=== PATIENT | female | born 1965 | race Caucasian/White ===

== ENCOUNTER → 2016-10-24 | Outpatient (CLI) | payer OTHER ==
[~2016-10-24] VITALS: Ht 172.7 cm; Wt 87.1 kg
[~2016-10-24] MED LIST: CALC500T49 PO; CLAR10CA3 PO; FLON1SPR; MULT1TAB10 PO; NS 1,000 ML IV SCH; OMEG100011 PO; OMEP20CA3 PO; PROPOFOL 200 MG/20 ML VIAL As Ordered ONE; SINUTAB PO; VITA100037 PO; VITA1TAB23 PO; astelin; fentaNYL 100 MCG/2 ML INJECTION (J3010) As Ordered ONE
--- NOTE | 2016-10-24 12:30 | ROOR ---
Patient Name: Cale Brice Procedure Date: 10/24/2016 11:53 AM Date of : 1965 Age: 51 Room: [facility] Gender: Female Note Status: Finalized Procedure: Upper GI endoscopy + Biopsies Indications: Heartburn, Exclusion of Sharp's esophagus Providers: Tio Cardoza MD Referring MD: MIRIAN CHARLES NP Requesting Provider: Medicines: Monitored Anesthesia Care Complications: No immediate complications. Procedure: Pre-Anesthesia Assessment: - The heart rate, respiratory rate, oxygen saturations, blood pressure, adequacy of pulmonary ventilation, and response to care were monitored throughout the procedure. The Endoscope was introduced through the mouth, and advanced to the second part of duodenum. The upper GI endoscopy was accomplished without difficulty. The patient tolerated the procedure well. Findings: The Z-line was irregular and was found 35 cm from the incisors. Multiple biopsies were obtained with cold forceps for evaluation to rule out Sharp's Esophagus randomly at the gastroesophageal junction. A medium-sized hiatal hernia was present. Mucosal changes including ringed esophagus were found in the entire esophagus. Biopsies were taken with a cold forceps for histology. No other significant abnormalities were identified in a careful examination of the stomach. The exam of the duodenum was otherwise normal. Impression: - Z-line irregular, 35 cm from the incisors. - Medium-sized hiatal hernia. - Esophageal mucosal changes suggestive of eosinophilic esophagitis. Biopsied. - Multiple biopsies were obtained at the gastroesophageal junction. - The examination was otherwise normal. Recommendation: - Patient has a contact number available for emergencies. The signs and symptoms of potential delayed complications were discussed with the patient. Return to normal activities tomorrow. Written discharge instructions were provided to the patient. - High fiber diet. - Discharge patient to home. - Continue present medications. - Await pathology results. - Check Portal Online for Path Results.([email or web address]) - Return to referring physician. - The findings and recommendations were discussed with the patient's family. Tio Cardoza MD Tio Cardoza MD 10/24/2016 12:30:01 PM This report has been signed electronically. Number of Addenda: 0 Note Initiated On: 10/24/2016 11:53 AM Estimated Blood Loss: Estimated blood loss: none. Estimated blood loss: none.
--- NOTE | 2016-10-24 12:32 | ROOR ---
Patient Name: Cale Brice Procedure Date: 10/24/2016 11:54 AM Date of : 1965 Age: 51 Room: [facility] Gender: Female Note Status: Finalized Procedure: Colonoscopy to Cecum Indications: Screening for colorectal malignant neoplasm, Last colonoscopy: 2005 Providers: Tio Cardoza MD Referring MD: MIRIAN CHARLES NP Requesting Provider: Medicines: Monitored Anesthesia Care Complications: No immediate complications. Procedure: Pre-Anesthesia Assessment: - The heart rate, respiratory rate, oxygen saturations, blood pressure, adequacy of pulmonary ventilation, and response to care were monitored throughout the procedure. The Colonoscope was introduced through the anus and advanced to the cecum, identified by appendiceal orifice and ileocecal valve. The colonoscopy was performed without difficulty. The patient tolerated the procedure well. The quality of the bowel preparation was excellent. Findings: The perianal and digital rectal examinations were normal. Non-bleeding internal hemorrhoids were found during retroflexion. The hemorrhoids were small and Grade I (internal hemorrhoids that do not prolapse). Scattered small-mouthed diverticula were found in the recto-sigmoid colon, sigmoid colon and descending colon. The exam was otherwise without abnormality on direct and retroflexion views. Impression: - Non-bleeding internal hemorrhoids. - Diverticulosis in the recto-sigmoid colon, in the sigmoid colon and in the descending colon. - The examination was otherwise normal on direct and retroflexion views. - No specimens collected. - The exam was otherwise normal to the cecum. Recommendation: - Patient has a contact number available for emergencies. The signs and symptoms of potential delayed complications were discussed with the patient. Return to normal activities tomorrow. Written discharge instructions were provided to the patient. - High fiber diet. - Discharge patient to home. - Repeat colonoscopy in 10 years for screening purposes. - Return to referring physician. - The findings and recommendations were discussed with the patient's family. Tio Cardoza MD Tio Cardoza MD 10/24/2016 12:32:12 PM This report has been signed electronically. Number of Addenda: 0 Note Initiated On: 10/24/2016 11:54 AM Estimated Blood Loss: Estimated blood loss: none.
[2016-10-24 12:45] VITALS: BP 142/91
== END | disposition home or self-care (01) ==
LOC: M SDC 10:28 → M OPP 10:28
PROVIDERS: ATTEND Internal Medicine Gastroenterology
DX: Z12.11 Encounter for screening for malignant neoplasm of colon (principal); K64.0 First degree hemorrhoids; K57.30 Diverticulosis of large intestine without perforation or abscess without bleeding; K21.9 Gastro-esophageal reflux disease without esophagitis; K22.8 Other specified diseases of esophagus; K44.9 Diaphragmatic hernia without obstruction or gangrene; K20.9 Esophagitis, unspecified; Z79.899 Other long term (current) drug therapy; Z87.891 Personal history of nicotine dependence
CPT/HCPCS: 43239; 45378; 88305; 99156; 99157; J3010

== ENCOUNTER → 2017-04-06 | Outpatient (REF) | payer OTHER ==
[~2017-04-06] MED LIST changes: -NS 1,000 ML IV SCH; -PROPOFOL 200 MG/20 ML VIAL As Ordered ONE; -VITA100037 PO; +VITA100067 PO; -fentaNYL 100 MCG/2 ML INJECTION (J3010) As Ordered ONE
== END ==
LOC: M LAB REF 10:34
PROVIDERS: ATTEND Physician Assistant
DX: R39.15 Urgency of urination (principal)

== ENCOUNTER → 2017-09-30 | Outpatient (REF) | payer OTHER ==
[2017-09-30 17:45] LABS: C REACTIVE PROTEIN QUANTITATIV 0.55 MG/DL (0.00-0.30)
[2017-10-03 00:07] LABS: EBV VIRAL CAPSID AG IgG >600.0 U/mL (0.0-17.9); EBV VIRAL CAPSID AG IgM <36.0 U/mL (0.0-35.9); Lyme Disease IgG/IgM Antibodie <0.91 ISR (0.00-0.90); Lyme Disease IgM Ab Quantitati <0.80 index (0.00-0.79)
== END ==
LOC: M LAB REF 16:44
DX: R59.0 Localized enlarged lymph nodes (principal)

== ENCOUNTER → 2017-10-22 | Outpatient (CLI) | payer OTHER | LOC: M WUC 16:54 | DX: J81.1 Chronic pulmonary edema (principal) | CPT/HCPCS: 71046 ==

== ENCOUNTER → 2017-12-09 | Outpatient (REF) | payer OTHER ==
[2017-12-09 19:30] LABS: C REACTIVE PROTEIN QUANTITATIV 0.52 MG/DL (0.00-0.30)
[2017-12-12 00:07] LABS: EBV VIRAL CAPSID AG IgM <36.0 U/mL (0.0-35.9)
[2017-12-12 00:07] LABS: EBV AB TO NUCLEAR ANTIGEN 26.6 U/mL (0.0-17.9); EBV VIRAL CAPSID AG IgG >600.0 U/mL (0.0-17.9)
== END ==
LOC: M LAB REF 18:07
DX: R59.0 Localized enlarged lymph nodes (principal)

== ENCOUNTER → 2018-05-21 | Outpatient (REF) | payer OTHER | LOC: M LAB REF 19:26 | DX: N39.0 Urinary tract infection, site not specified (principal) ==

== ENCOUNTER → 2018-06-03 | Outpatient (REF) | payer OTHER ==
[2018-06-05 08:06] LABS: LDL DIRECT 141 mg/dL (0-99)
== END ==
LOC: M LAB REF 16:41
DX: E78.5 Hyperlipidemia, unspecified (principal)
CPT/HCPCS: 83721

== ENCOUNTER → 2018-07-12 | Outpatient (REF) | payer OTHER | LOC: M LAB REF 12:00 | PROVIDERS: ATTEND Internal Medicine Gastroenterology | DX: R19.7 Diarrhea, unspecified (principal) ==

== ENCOUNTER → 2018-07-14 | Outpatient (REF) | payer OTHER ==
[2018-07-18 16:26] LABS: HPV HYBRID CAPTURE II Negative (Negative)
== END ==
LOC: M SFHCWAGY 16:23
PROVIDERS: ATTEND Nurse Practitioner Family
DX: Z12.4 Encounter for screening for malignant neoplasm of cervix (principal)
CPT/HCPCS: 87624; G0123

== ENCOUNTER → 2019-05-20 | Outpatient (CLI) | payer OTHER ==
[~2019-05-20] MED LIST changes: -OMEP20CA3 PO; +OMEP20CA4 PO
--- NOTE | 2019-05-20 16:28 | REP ---
Three views chest: 05/20/2019. Indication: Dyspnea. Comparison: 10/22/2018. Findings: No air space consolidation, pleural effusion or pneumothorax is detected. The cardiomediastinal silhouette is unremarkable. There is a 1.4 cm nodular density within the left costophrenic angle which is not appreciated on the additional images. Impression: No acute cardiopulmonary process. Possible left lower lobe pulmonary nodule. Dedicated chest CT is recommended for further evaluation. Electronically Signed by Jese Osuna DO 05/20/2019 04:20 P
== END ==
LOC: M WUC 10:41
PROVIDERS: ATTEND Physician Assistant
DX: R06.02 Shortness of breath (principal); R91.8 Other nonspecific abnormal finding of lung field

== ENCOUNTER → 2019-06-16 | Outpatient (CLI) | payer OTHER ==
[~2019-06-16] MED LIST changes: +OMEP-172 PO; -OMEP20CA4 PO
--- NOTE | 2019-06-16 17:35 | REP ---
CT chest without contrast: History: Left lower lobe pneumonia. Comparison chest CT study May 21, 2019. CT findings: The previously noted dense consolidation pattern in the left lower lobe is dramatically improved. There are some patchy interstitial and a tree in bud type opacities in the left lower lobe remaining and there are patchy ground-glass opacities again seen in the lingula. These are improved. The patchy opacities seen previously in the left upper lobe are resolved. There are ground-glass opacities in the right upper lobe, which were not apparent at the time of the CT study from May 21, 2019, but appear to be inflammatory or postinflammatory. They are somewhat linear in orientation. No hilar or mediastinal mass is seen. There are scattered mediastinal lymph nodes noted which are unchanged. No adrenal lesion is seen. There is an accessory splenule. Impression: Previously noted left lower and left upper lobe infiltrates are virtually resolved. There is some residual patchy ground-glass opacities bilaterally. Stable scattered small mediastinal nodes. Findings consistent with resolving pneumonia. Electronically Signed by Aquilino Frey MD 06/17/2019 05:33 P
== END ==
LOC: M RAD 16:02
PROVIDERS: ATTEND Nurse Practitioner Family
DX: J18.9 Pneumonia, unspecified organism (principal)

== ENCOUNTER → 2019-07-13 | Outpatient (REF) | payer OTHER | LOC: M LAB REF 16:17 | PROVIDERS: ATTEND Nurse Practitioner Family | DX: R30.0 Dysuria (principal) ==

== ENCOUNTER → 2019-09-17 | Outpatient (CLI) | payer OTHER ==
[~2019-09-17] MED LIST changes: -OMEP-172 PO; +OMEP1CAP73 PO
--- NOTE | 2019-09-21 18:10 | REP ---
Clinical: Postmenopausal bleeding. Technique: Transabdominal pelvic ultrasound followed by transvaginal examination for better evaluation of the endometrium and adnexa with color Doppler evaluation of the ovaries. Comparison: 03/29/2015 Findings: Heterogeneous retroverted uterus measures 6.2 x 3.3 x 4.5 cm with possible 1 cm posterior intramural fibroid suspected. Endometrial complex measures 8 mm thickness without discrete polyp or mass. Right ovary is normal in appearance and vascularity measuring 2.5 x 1.4 x 1.1 cm (RI 0.53). The left ovary measures 2.6 x 1.3 x 1.0 cm (RI 0.57) and a complex left paraovarian cyst with mural nodule and 4 mm calcification is identified measuring 1.6 x 1.4 x 1.2 cm. No pelvic free fluid or adnexal mass lesion otherwise noted. The bladder appears normal and measures 10.3 x 8.3 x 10.0 cm. Impression: 1. Mildly thickened endometrial complex to 8 mm without discrete abnormality. 2. 1 cm posterior intramural fibroid suspected. 3. Complex left paraovarian versus partially exophytic ovarian cyst. Consider reevaluation in 4-6 weeks to evaluate for resolution. Electronically Signed by Marshall Ricketts MD 09/21/2019 06:02 P
== END ==
LOC: M WHC 14:54
PROVIDERS: ATTEND Nurse Practitioner Family
DX: N95.0 Postmenopausal bleeding (principal)

== ENCOUNTER → 2019-11-09 | Outpatient (CLI) | payer OTHER ==
--- NOTE | 2019-11-10 06:40 | REP ---
Clinical: Left ovarian cyst . Comparison: 09/17/2019 Technique: Transabdominal pelvic ultrasound followed by transvaginal examination for better evaluation of the endometrium and adnexa with color Doppler evaluation of the ovaries. Findings: Bladder is unremarkable and measures 9.1 x 5.3 x 8.7 cm . Heterogeneous anteverted retroflexed uterus measures 6.7 x 2.6 x 4.6 cm and includes multiple hypoechoic lesions most compatible with small fibroids including largest anterior intramural fibroid measuring 1.1 cm diameter. The endometrial complex measures 6.1 mm thickness. Bilateral ovaries are normal in appearance and vascularity without evidence for torsion. Right ovary measures 1.0 x 2.2 x 1.3 cm (RI 0.68) ; Left ovary measures 2.4 x 1.0 x 1.2 cm (RI 0.63) including a 4.4 mm echogenic focus with shadowing suggesting small calcification. 1.4 x 1.6 x 1.3 cm complex left paraovarian cyst with small mural nodules unchanged. No pelvic fluid or adnexal mass lesion. Impression: 1. No significant change from prior examination including suspected small fibroids and left ovarian calcification as well as complex left paraovarian cyst.
== END ==
LOC: M WHC 10:26
PROVIDERS: ATTEND Nurse Practitioner Family
DX: N83.202 Unspecified ovarian cyst, left side (principal)

== ENCOUNTER → 2019-11-09 | Outpatient (REF) | payer OTHER | LOC: M SFHCWAGY 16:49 | PROVIDERS: ATTEND Nurse Practitioner Family | DX: N95.0 Postmenopausal bleeding (principal) ==

== ENCOUNTER → 2019-12-07 | Outpatient (REF) | payer OTHER ==
[2019-12-09 08:15] LABS: LDL DIRECT 119 mg/dL (0-99)
== END ==
LOC: M LAB REF 16:15
PROVIDERS: ATTEND Nurse Practitioner Family
DX: E78.5 Hyperlipidemia, unspecified (principal)

== ENCOUNTER → 2019-12-16 | Outpatient (CLI) | payer OTHER | LOC: M LABSMTC 11:26 | PROVIDERS: ATTEND Family Medicine | DX: Z03.818 Encounter for observation for suspected exposure to other biological agents ruled out (principal); Z11.59 Encounter for screening for other viral diseases | CPT/HCPCS: C9803; U0003 ==

== ENCOUNTER → 2020-01-26 | Outpatient (CLI) | payer OTHER ==
[~2020-01-26] MED LIST changes: -VITA1TAB23 PO; +VITA250T26 PO
--- NOTE | 2020-01-26 11:25 | REP ---
Clinical: Follow-up left ovarian cyst. Technique: Transabdominal pelvic ultrasound followed by transvaginal examination for better evaluation of the endometrium and adnexa color Doppler evaluation of the ovaries. Comparison: 11/09/2019. Findings: Bladder is normal and measures 11.1 x 5.9 x 8.9 cm. Heterogeneous retroverted uterus measures 5.8 x 3.5 x 4.1 cm and includes 10 mm and 7 mm anterior intramural fibroids similar to prior examination. Endometrial complex measures 7.5 mm thickness. Right ovary measures 2.3 x 1.0 x 1.0 cm (RI 0.67) and appears normal. Left ovary measures 1.5 x 1.4 x 1.6 cm with a stable 13 x 13 x 9 mm cyst unchanged the prior examination. The previously noted small left ovarian echogenic focus is not identifiable on current examination and may have represented a resolving hemorrhagic cyst. No pelvic fluid or further adnexal abnormalities noted. Impression: 1. Retroverted uterus with small intramural fibroids again noted and unchanged. 2. Left ovarian cyst again identified and essentially unchanged. Electronically Signed by Marshall Ricketts MD 01/26/2020 11:17 A
== END ==
LOC: M WHC 09:34
PROVIDERS: ATTEND Nurse Practitioner Family
DX: N83.202 Unspecified ovarian cyst, left side (principal); N85.4 Malposition of uterus

== ENCOUNTER → 2020-06-08 | Outpatient (REF) | payer OTHER ==
[2020-06-10 04:06] LABS: LDL DIRECT 116 mg/dL (0-99)
== END ==
LOC: M LAB REF 16:24
PROVIDERS: ATTEND Registered Nurse
DX: E78.5 Hyperlipidemia, unspecified (principal)

== ENCOUNTER → 2020-06-24 | Outpatient (CLI) | payer OTHER ==
--- NOTE | 2020-06-24 15:45 | REP ---
INDICATION: LUNG SCREENING-EARLY CANCER LUNG SCREENING. COMPARISON: Comparison CT studies of the chest June 16, 2019 and May 21, 2019.. TECHNIQUE: Low-dose screening exam. 3 mm axial images at lung only windows. 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 There is no evidence of infiltrate, pulmonary mass, or significant pulmonary nodule. The ground-glass opacity seen on the June 2019 study have resolved. No infiltrate is observed. No pleural effusion is seen. IMPRESSION: Lung RADS category 1 findings. Repeat screening exam suggested in 1 year. <Electronically signed by Kaiser Frey > 06/24/20 [id number]
== END ==
LOC: M RAD 12:36
PROVIDERS: ATTEND Registered Nurse
DX: Z12.2 Encounter for screening for malignant neoplasm of respiratory organs (principal); F17.218 Nicotine dependence, cigarettes, with other nicotine-induced disorders

== ENCOUNTER → 2020-09-30 | Outpatient (REF) | payer OTHER | LOC: M LAB REF 14:21 | PROVIDERS: ATTEND Registered Nurse | DX: R19.7 Diarrhea, unspecified (principal) ==

== ENCOUNTER → 2021-01-30 | Outpatient (REF) | payer OTHER | LOC: M LAB REF 20:06 | PROVIDERS: ATTEND Physician Assistant | DX: N39.0 Urinary tract infection, site not specified (principal) ==

== ENCOUNTER → 2021-03-16 | Outpatient (REF) | payer OTHER | LOC: M LAB REF 13:48 | PROVIDERS: ATTEND Internal Medicine | DX: K57.30 Diverticulosis of large intestine without perforation or abscess without bleeding (principal); R19.7 Diarrhea, unspecified; Z80.0 Family history of malignant neoplasm of digestive organs ==

== ENCOUNTER → 2021-03-29 | Outpatient (REF) | payer OTHER | LOC: M LAB REF 11:17 | PROVIDERS: ATTEND Internal Medicine | DX: R19.7 Diarrhea, unspecified (principal); K57.30 Diverticulosis of large intestine without perforation or abscess without bleeding; Z80.0 Family history of malignant neoplasm of digestive organs ==

== ENCOUNTER → 2021-10-16 | Outpatient (CLI) | payer OTHER | LOC: M RAD 09:53 | PROVIDERS: ATTEND Registered Nurse | DX: F17.210 Nicotine dependence, cigarettes, uncomplicated (principal) ==

== ENCOUNTER → 2021-11-14 | Outpatient (CLI) | payer OTHER | LOC: M RAD 07:00 | PROVIDERS: ATTEND Registered Nurse | DX: K76.0 Fatty (change of) liver, not elsewhere classified (principal); R94.5 Abnormal results of liver function studies ==

== ENCOUNTER → 2022-08-16 | Outpatient (REF) | payer OTHER | LOC: M LAB REF 11:20 | PROVIDERS: ATTEND Internal Medicine | DX: E03.9 Hypothyroidism, unspecified (principal) ==

== ENCOUNTER → 2022-09-14 | Outpatient (REF) | payer OTHER | LOC: M WUC 12:16 | PROVIDERS: ATTEND Physician Assistant | DX: J02.9 Acute pharyngitis, unspecified (principal) ==

== ENCOUNTER → 2022-12-06 | Outpatient (CLI) | payer OTHER | LOC: M RAD 13:35 | PROVIDERS: ATTEND Internal Medicine | DX: Z12.2 Encounter for screening for malignant neoplasm of respiratory organs (principal); F17.290 Nicotine dependence, other tobacco product, uncomplicated ==

== ENCOUNTER → 2023-04-12 | Outpatient (REF) | payer OTHER ==
[2023-04-14 08:08] LABS: LDL DIRECT 82 mg/dL (0-99)
== END ==
LOC: M LAB REF 16:33
PROVIDERS: ATTEND Internal Medicine
DX: E78.00 Pure hypercholesterolemia, unspecified (principal)

== ENCOUNTER 2023-08-05 22:37 | Observation (INO) | payer OTHER ==
[~2023-08-05] VITALS: Ht 170.2 cm; Wt 92.2 kg
[~2023-08-05 22:37] MED LIST changes: -FLON1SPR; +FLON1SPR NARES
[2023-08-05] MEDS: ONDANSETRON 4MG 2ML VIAL IV ONE (23:56)
[2023-08-06] VITALS (10 sets, daily range): BP systolic 119–146; BP diastolic 70–84; TEMP 96.6–98; O2SAT 86–98
[2023-08-06 00:16] LABS: BASO % 0.3 % (0.0-1.0); HEMATOCRIT 35.1 % (36.0-47.0); HEMOGLOBIN 12.1 g/dl (12.0-15.5); LYMPH # 1.1 10^3/uL (1.5-5.0); LYMPH % 29.4 % (24.0-44.0); MEAN CORPUSCULAR HEMOGLOBIN 32.4 pg (27.0-33.0); MEAN CORPUSCULAR HGB CONC 34.5 g/dl (32.0-36.5); MEAN CORPUSCULAR VOLUME 93.9 fl (80.0-96.0); MONO # 0.3 10^3/uL (0.0-0.8); MONO % 7.4 % (2.0-8.0); NEUTROPHILS # 2.3 10^3/uL (1.5-8.5); NEUTROPHILS % 62.4 % (36.0-66.0); PLATELET COUNT, AUTOMATED 166 10^3/uL (150-450); RED BLOOD COUNT 3.74 10^6/uL (4.00-5.40); WHITE BLOOD COUNT 3.7 10^3/uL (4.0-10.0)
[2023-08-06 00:29] LABS: ETHYL ALCOHOL (ETHANOL) 0.214 % (0.000-0.010)
[2023-08-06 00:31] LABS: BLOOD UREA NITROGEN 11 MG/DL (9-23); CALCIUM LEVEL 8.3 MG/DL (8.5-10.1); CARBON DIOXIDE LEVEL 27 MMOL/L (20-31); CHLORIDE LEVEL 101 MMOL/L (98-107); CREATININE FOR GFR 0.54 MG/DL (0.55-1.30); GLOMERULAR FILTRATION RATE > 60.0 (>51); GLUCOSE, FASTING 98 MG/DL (60-100); POTASSIUM SERUM 3.8 MMOL/L (3.5-5.1); SODIUM LEVEL 135 MMOL/L (136-145)
[2023-08-06 01:06] LABS: RSV AMPLIFICATION NEGATIVE (NEGATIVE)
[2023-08-06] MEDS ORDERED: C 50TAB PO (01:37)
[2023-08-06] MEDS ORDERED: VITA100093 PO (01:37)
[2023-08-06] MEDS ORDERED: MULT-40 PO (01:37)
[2023-08-06] MEDS ORDERED: REST0.05 OU (01:37)
[2023-08-06] MEDS ORDERED: VENL150C43 PO (01:37)
[2023-08-06] MEDS ORDERED: FERR1TAB8 PO (01:37)
[2023-08-06] MEDS ORDERED: ROSU20TA61 PO (01:37)
[2023-08-06] MEDS ORDERED: CALCTAB15 PO (01:37)
[2023-08-06] MEDS ORDERED: IBUP-1764 PO (01:37)
[2023-08-06] MEDS ORDERED: LISI10TA22 PO (01:37)
[2023-08-06] MEDS ORDERED: LORA-930 PO (01:37)
[2023-08-06] MEDS ORDERED: HOME MED LIST COMPLETE! XX SCH (01:40)
[2023-08-06] MEDS: MORPHINE 4 MG/ML 1ML VIAL IV PRN ×2 (02:14)
[2023-08-06] MEDS: LR 1,000 ML IV SCH (02:30)
[2023-08-06] MEDS ORDERED: LORazepam 2 MG TAB PO PRN (02:40)
[2023-08-06] MEDS: MULTIVITAMIN -ADULT INJECTION 10 ML, THIAMINE INJection 100 MG, FOLIC ACID 1 MG in NS 1... IV ONE (03:29)
[2023-08-06] MEDS: HYDROMORPHONE HCL 0.5 MG/ 0.5 ML SYRINGE IV PRN ×2 (03:57→16:41)
[2023-08-06] MEDS ORDERED: propofoL 200 MG/20 ML VIAL As Ordered ONE (09:08)
[2023-08-06] MEDS ORDERED: ONDANSETRON 4MG 2ML VIAL As Ordered ONE (09:08)
[2023-08-06] MEDS ORDERED: LIDOCAINE 2% 100MG/5ML SDV (FOR ANES.) As Ordered ONE (09:08)
[2023-08-06] MEDS ORDERED: fentaNYL 100 MCG/2 ML INJECTION As Ordered ONE (09:09)
[2023-08-06] MEDS ORDERED: MIDAZOLAM INJ 2MG/2ML VIAL As Ordered ONE (09:09)
[2023-08-06] MEDS ORDERED: ROCURONIUM BROMIDE 50MG/5ML VIAL As Ordered ONE (09:12)
[2023-08-06] MEDS ORDERED: SUGAMMADEX SODIUM 500 MG/5 ML VIAL (BRIDION) As Ordered ONE (09:12)
[2023-08-06] MEDS: ROPIvacaine 0.5% 30ML VIAL PN ONE (09:30)
[2023-08-06] MEDS: dexAMETHasone 10MG/1ML VIAL PRES.FREE PN ONE (09:30)
[2023-08-06] MEDS: EPINEPHrine INJ 1 MG/ML 1ML AMP PN ONE (09:30)
[2023-08-06] MEDS: LIDOCAINE 1% SDV 5ML VIAL PN ONE (10:00)
[2023-08-06] MEDS ORDERED: ceFAZolin 2 GM/D5W 50 ML IV BAG As Ordered ONE (10:18)
[2023-08-06] MEDS ORDERED: ACETAMINOPHEN 1000MG 100ML IV BAG As Ordered ONE (10:25)
[2023-08-06] MEDS: VENLAFAXINE **XR** 75MG CAPSULE PO SCH (12:40)
[2023-08-06] MEDS: ENOXAPARIN 40MG/0.4ML SYRINGE (J1650 PER 10MG) SC SCH (17:43)
[2023-08-06] MEDS: CALCIUM CARBONATE 500 MG CHEW U/D PO PRN (18:15)
[2023-08-06] MEDS: ceFAZolin SOD 2 GM in IV 1 EA IV SCH (20:53)
[2023-08-06] MEDS: RESTASIS EYE OU SCH (21:06)
[2023-08-07] MEDS: ACETAMINOPHEN TAB 650MG DOSE (2X325MG) PO PRN (01:44)
[2023-08-07 02:00] VITALS: BP 146/98; TEMP 97.5; O2SAT 93
[2023-08-07 05:58] VITALS: BP 130/67; TEMP 96.9; O2SAT 95
[2023-08-07 06:00] VITALS: BP 130/67
[2023-08-07 07:00] LABS: HEMATOCRIT 29.1 % (36.0-47.0); HEMOGLOBIN 9.9 g/dl (12.0-15.5); MEAN CORPUSCULAR HEMOGLOBIN 32.7 pg (27.0-33.0); PLATELET COUNT, AUTOMATED 121 10^3/uL (150-450); RED BLOOD COUNT 3.03 10^6/uL (4.00-5.40); WHITE BLOOD COUNT 5.9 10^3/uL (4.0-10.0)
[2023-08-07 07:17] LABS: ALBUMIN 2.8 G/DL (3.2-5.2); ALKALINE PHOSPHATASE 83 U/L (46-116); ALT/SGPT 66 U/L (7.0-40); AST/SGOT 70 U/L (<34); BILIRUBIN,TOTAL 0.4 MG/DL (0.3-1.2); BLOOD UREA NITROGEN 6 MG/DL (9-23); CALCIUM LEVEL 8.7 MG/DL (8.5-10.1); CARBON DIOXIDE LEVEL 29 MMOL/L (20-31); CHLORIDE LEVEL 106 MMOL/L (98-107); CREATININE FOR GFR 0.48 MG/DL (0.55-1.30); GLOMERULAR FILTRATION RATE > 60.0 (>51); GLUCOSE, FASTING 124 MG/DL (60-100); MAGNESIUM LEVEL 1.8 MG/DL (1.8-2.4); POTASSIUM SERUM 3.9 MMOL/L (3.5-5.1); SODIUM LEVEL 141 MMOL/L (136-145); TOTAL PROTEIN 5.5 G/DL (5.7-8.2)
[2023-08-07 09:34] VITALS: BP 130/67
[2023-08-07 10:00] VITALS: BP 142/80; TEMP 97.7; O2SAT 92
[2023-08-07 10:17] LABS: HEMATOCRIT 31.2 % (36.0-47.0); HEMOGLOBIN 10.5 g/dl (12.0-15.5)
[2023-08-07] MEDS ORDERED: BAYE325T12 PO (11:04)
[2023-08-07] MEDS ORDERED: PERC5TAB12 PO (11:07)
== END 2023-08-07 15:40 | disposition home or self-care (01) ==
LOC: M ED 22:37 → M ED INP 22:38 → UNDOADMOB 08-06 02:27 → M ED INP 08-06 02:27 → INTOOBSV 08-06 02:27 → M MS5PR 08-06 03:17 → M ED INP 08-06 03:17 → M MS5PR 08-06 03:17 → UNDODISOB 08-07 15:40
PROVIDERS: ADMIT Family Medicine; ATTEND Student in an Organized Health Care Education/Training Program
DX: S82.851A Displaced trimalleolar fracture of right lower leg, initial encounter for closed fracture (principal); W10.8XXA Fall (on) (from) other stairs and steps, initial encounter; Y92.89 Other specified places as the place of occurrence of the external cause; Y93.9 Activity, unspecified; Y99.9 Unspecified external cause status; F10.10 Alcohol abuse, uncomplicated; R78.0 Finding of alcohol in blood; K58.8 Other irritable bowel syndrome; K21.9 Gastro-esophageal reflux disease without esophagitis; J30.2 Other seasonal allergic rhinitis; F41.9 Anxiety disorder, unspecified; F32.A Depression, unspecified; I10 Essential (primary) hypertension; Z87.891 Personal history of nicotine dependence; Z79.899 Other long term (current) drug therapy
CPT/HCPCS: 27822; 36415; 71045; 73590; 73600; 73610; 76000; 80048; 80053; 82077; 83735; 85014; 85018; 85025; 85027; 87631; 96361; 96365; 96366; 96372; 96375; 96376; 97116; 97161; 97165; 97535; 99285; C1713; J0131; J0171; J0665; J0690; J1100; J1170; J1650; J2250; J2405; J2795; J3010; J3411

== ENCOUNTER → 2023-08-14 | Outpatient (CLI) | payer OTHER ==
[~2023-08-14] MED LIST changes: +BAYE325T12 PO; +C 50TAB PO; +CALCTAB15 PO; +FERR1TAB8 PO; +IBUP-1764 PO; +LISI10TA22 PO; +LORA-930 PO; +MULT-40 PO; +PERC5TAB12 PO; +REST0.05 OU; +ROSU20TA61 PO; +VENL150C43 PO; +VITA100093 PO
== END ==
LOC: M SOG 08:01
PROVIDERS: ATTEND Orthopaedic Surgery
DX: S82.851D Displaced trimalleolar fracture of right lower leg, subsequent encounter for closed fracture with routine healing (principal)

== ENCOUNTER → 2023-09-11 | Outpatient (CLI) | payer OTHER | LOC: M SOG 07:51 | PROVIDERS: ATTEND Orthopaedic Surgery | DX: S82.851D Displaced trimalleolar fracture of right lower leg, subsequent encounter for closed fracture with routine healing (principal) ==

== ENCOUNTER → 2023-10-22 | Outpatient (CLI) | payer OTHER | LOC: M SOG 13:00 | PROVIDERS: ATTEND Physician Assistant | DX: S82.851D Displaced trimalleolar fracture of right lower leg, subsequent encounter for closed fracture with routine healing (principal) ==

== ENCOUNTER → 2023-11-04 | Outpatient (REF) | payer OTHER | LOC: M SFHCWAGY 17:52 | PROVIDERS: ATTEND Nurse Practitioner Family | DX: Z12.4 Encounter for screening for malignant neoplasm of cervix (principal); Z11.51 Encounter for screening for human papillomavirus (HPV) ==

== ENCOUNTER → 2023-11-14 | Outpatient (REF) | payer OTHER | LOC: M LAB REF 11:30 | PROVIDERS: ATTEND Nurse Practitioner Family | DX: R19.7 Diarrhea, unspecified (principal) ==

== ENCOUNTER → 2023-12-09 | Outpatient (CLI) | payer OTHER | LOC: M RAD 10:39 | PROVIDERS: ATTEND Internal Medicine | DX: Z12.2 Encounter for screening for malignant neoplasm of respiratory organs (principal); F17.210 Nicotine dependence, cigarettes, uncomplicated ==

== ENCOUNTER 2024-01-27 11:08 | Day surgery (SDC) | payer OTHER ==
[~2024-01-27] VITALS: Ht 172.7 cm; Wt 78.8 kg
[~2024-01-27 11:08] MED LIST changes: +ASPI325T57 PO; +LIDOCAINE 2% 100MG/5ML SDV (FOR ANES.) As Ordered ONE; +fentaNYL 100 MCG/2 ML INJECTION As Ordered ONE; +propofoL 200 MG/20 ML VIAL As Ordered ONE
[2024-01-27] MEDS: NS 1,000 ML IV ONE (11:22)
[2024-01-27] MEDS ORDERED: GLYCOPYRROLATE INJ 0.2 MG/ML 2 ML VIAL As Ordered ONE (12:48)
[2024-01-27 13:25] VITALS: BP 146/82; O2SAT 96
== END 2024-01-27 13:33 | disposition home or self-care (01) ==
LOC: M OPP 11:08
PROVIDERS: ATTEND Internal Medicine Gastroenterology
DX: D12.3 Benign neoplasm of transverse colon (principal); K63.5 Polyp of colon; K57.30 Diverticulosis of large intestine without perforation or abscess without bleeding; R19.7 Diarrhea, unspecified; Z86.010 Personal history of colon polyps; K22.89 Other specified disease of esophagus; K29.50 Unspecified chronic gastritis without bleeding; K31.89 Other diseases of stomach and duodenum; R12 Heartburn; I10 Essential (primary) hypertension; F17.200 Nicotine dependence, unspecified, uncomplicated; Z79.02 Long term (current) use of antithrombotics/antiplatelets; Z79.51 Long term (current) use of inhaled steroids; Z79.899 Other long term (current) drug therapy
CPT/HCPCS: 43239; 45380; 45385; 88305; J1596; J3010

== ENCOUNTER → 2024-03-30 | Outpatient (CLI) | payer OTHER ==
[~2024-03-30] MED LIST changes: -LIDOCAINE 2% 100MG/5ML SDV (FOR ANES.) As Ordered ONE; -fentaNYL 100 MCG/2 ML INJECTION As Ordered ONE; -propofoL 200 MG/20 ML VIAL As Ordered ONE
== END ==
LOC: M WHC 08:47
PROVIDERS: ATTEND Nurse Practitioner Family
DX: R10.11 Right upper quadrant pain (principal)

== ENCOUNTER → 2024-04-27 | Outpatient (REF) | payer OTHER ==
[~2024-04-27] MED LIST changes: -ROSU20TA61 PO; +ROSU20TA86 PO
[2024-04-29 17:22] LABS: THYROGLOBULIN ANTIBODY < 15.0 U/ML (<60.0); THYROID PEROXIDASE ANTIBODY 45 U/ML (<60.0)
== END ==
LOC: M LAB REF 12:49
PROVIDERS: ATTEND Internal Medicine
DX: E03.9 Hypothyroidism, unspecified (principal)

== ENCOUNTER → 2024-07-24 | Outpatient (CLI) | payer OTHER ==
[~2024-07-24] MED LIST changes: -BAYE325T12 PO; +BAYE325T2 PO
== END ==
LOC: M SOG 07:51
PROVIDERS: ATTEND Physician Assistant
DX: S82.851D Displaced trimalleolar fracture of right lower leg, subsequent encounter for closed fracture with routine healing (principal); Y93.9 Activity, unspecified; Y92.9 Unspecified place or not applicable

== ENCOUNTER → 2024-08-14 | Outpatient (CLI) | payer OTHER | LOC: M RAD 07:36 | PROVIDERS: ATTEND Physician Assistant Medical | DX: K76.0 Fatty (change of) liver, not elsewhere classified (principal); R16.1 Splenomegaly, not elsewhere classified ==

== ENCOUNTER → 2024-09-25 | Outpatient (REF) | payer OTHER ==
[2024-09-25 17:27] LABS: RHEUMATOID FACTOR QUANT < 3.5 IU/ML (<14)
[2024-09-25 17:29] LABS: VITAMIN B12 LEVEL 181 PG/ML (211-911)
[2024-09-25 17:34] LABS: FOLATE 8.9 NG/ML (>5.4)
[2024-09-25 18:02] LABS: HEMOGLOBIN A1c 4.4 % (4.0-6.0)
== END ==
LOC: M LAB REF 15:43
PROVIDERS: ATTEND Psychiatry & Neurology Neurology
DX: E53.8 Deficiency of other specified B group vitamins (principal); G62.9 Polyneuropathy, unspecified

== ENCOUNTER → 2024-10-02 | Outpatient (REF) | payer OTHER ==
[2024-10-06 02:25] LABS: LDL DIRECT 93 mg/dL (<100)
== END ==
LOC: M LAB REF 17:17
PROVIDERS: ATTEND Internal Medicine
DX: E78.00 Pure hypercholesterolemia, unspecified (principal)

== ENCOUNTER → 2024-10-07 | Outpatient (CLI) | payer OTHER ==
[~2024-10-07] MED LIST changes: +PROHANCE 279.3MG/ML 15ML VIAL ONE
== END ==
LOC: M PLAIMG 12:00
PROVIDERS: ATTEND Internal Medicine Medical Oncology
DX: R16.1 Splenomegaly, not elsewhere classified (principal)

== ENCOUNTER → 2024-11-04 | Outpatient (REF) | payer OTHER ==
[~2024-11-04] MED LIST changes: +LEVO25TA5; -PROHANCE 279.3MG/ML 15ML VIAL ONE
[2024-11-06 14:24] LABS: HPV APTIMA Not Detected (Not Detected)
== END ==
LOC: M SFHCWAGY 13:11
PROVIDERS: ATTEND Nurse Practitioner Family
DX: Z12.4 Encounter for screening for malignant neoplasm of cervix (principal); R87.610 Atypical squamous cells of undetermined significance on cytologic smear of cervix (ASC-US)
CPT/HCPCS: 87624; G0123

== ENCOUNTER → 2024-11-13 | Outpatient (REF) | payer OTHER | LOC: M LAB REF 16:59 | PROVIDERS: ATTEND Nurse Practitioner Family | DX: R30.0 Dysuria (principal) ==

== ENCOUNTER → 2025-01-14 | Outpatient (REF) | payer OTHER ==
[2025-01-17 03:37] LABS: LDL DIRECT 99 mg/dL (<100)
== END ==
LOC: M LAB REF 17:23
PROVIDERS: ATTEND Internal Medicine
DX: E78.00 Pure hypercholesterolemia, unspecified (principal)

== ENCOUNTER → 2025-05-07 | Outpatient (CLI) | payer OTHER ==
[~2025-05-07] MED LIST changes: +BACT800T5 PO
== END ==
LOC: M RAD 10:10
PROVIDERS: ATTEND Internal Medicine Medical Oncology
DX: R16.2 Hepatomegaly with splenomegaly, not elsewhere classified (principal); R93.2 Abnormal findings on diagnostic imaging of liver and biliary tract

== ENCOUNTER → 2025-05-25 | Outpatient (REF) | payer OTHER ==
[2025-05-26 06:58] LABS: LDL DIRECT 98 mg/dL (<100)
== END ==
LOC: M LAB REF 14:25
PROVIDERS: ATTEND Internal Medicine
DX: E78.00 Pure hypercholesterolemia, unspecified (principal)